=== PATIENT | male | born 1955 | race Caucasian/White ===

== ENCOUNTER 2020-03-03 10:15 | Day surgery (SDC) | payer OTHER ==
[~2020-03-03] VITALS: Ht 165.1 cm; Wt 116.4 kg
[2020-03-03 11:09] VITALS: Ht 165.1 cm; Wt 116.4 kg
--- NOTE | 2020-03-04 07:39 | OP ---
PATIENT NAME: MOHINI BRENNAN MEDICAL RECORD: [id number] LOCATION:[facility] ADMISSION DATE: SURGEON: MICHA PIERSON DO DATE OF OPERATION: 03/03/2020 PROCEDURE: Colonoscopy with polypectomy. INDICATIONS FOR PROCEDURE: History of colon polyps and family history positive for colon cancer in the patient's mother. The patient's last colonoscopy was 2 years ago. SCOPE: Olympus video pediatric colonoscope. MEDICATIONS: Propofol 650 mg IV per anesthesia. WITHDRAWAL TIME: 10 minutes. ESTIMATED BLOOD LOSS: Minimal. COMPLICATIONS: None. FINDINGS: Informed consent was given. The patient was made comfortable with the above medication. After reaching an adequate level of sedation by slow IV push, the patient was placed on his left side. A digital rectal examination was performed and was normal. The endoscope was advanced under direct visualization through the rectum to the cecum, confirmed by the presence of the appendiceal orifice and ileocecal valve. The endoscope was slowly withdrawn and mucosa was carefully examined. The prep quality was good. There were 4 polyps visualized on today's examination. Two were located in the rectum and 2 were located in the sigmoid colon. They ranged in size from 3-5 mm in diameter. They were all removed using hot snare. The 2 sigmoid polyps were not collected, but the 2 rectal polyps were. There was evidence of mild diverticulosis involving the descending and sigmoid colon. Retroflexion was performed in the rectum with visualization of grade II internal hemorrhoids without bleeding. The endoscope was withdrawn from the patient. The patient tolerated the procedure well and there were no complications. IMPRESSION: 1. Four polyps as described above, removed using a hot snare. 2. Moderate diverticulosis of the descending and sigmoid colon. 3. Grade II internal hemorrhoids without bleeding. PLAN AND RECOMMENDATIONS: 1. Discharge home when recovery parameters are met. 2. Follow up biopsy specimen results. 3. High fiber diet. 4. Continue current medications. 5. Recall colonoscopy in 3 years. TRANSINT:[id number] Voice Confirmation ID: [id number] DOCUMENT ID: [id number] OPERATIVE REPORT [id number] MOHINI BRENNAN MICHA PIERSON DO at 0739 CC: [id number] DICTATION DATE: 03/03/20 1254 DELIVERY CREW MEMBER: 03/03/20 [id number] [facility] 03/03/20 [facility] [address] [place] [address]
== END 2020-03-03 13:45 | disposition home or self-care (01) ==
LOC: D.OPS 10:15
PROVIDERS: ATTEND Internal Medicine Gastroenterology
DX: Z86.010 Personal history of colon polyps (principal); Z80.0 Family history of malignant neoplasm of digestive organs